=== PATIENT | female | born 1945 | race Two or more races ===

== ENCOUNTER 2023-10-07 15:57 | Inpatient (IN) | payer MEDICARE, MEDICAID ==
[~2023-10-07] VITALS: Ht 149.9 cm; Wt 55.0 kg
[2023-10-07 18:09] LABS: Basophils # (auto) 0 10 ^3/uL (0-0.2); Basophils % (auto) 0.1 % (0.0-2.0); Eosinophils # (auto) 0.1 10 ^3/uL (0-0.8); Eosinophils % (auto) 2.2 % (0.0-7.0); Hematocrit 32.9 % (36.0-46.0); Lymphocytes # (auto) 0.5 10 ^3/uL (0.4-5.4); Lymphocytes % (auto) 13.7 % (10.0-50.0); Mean Corpuscular Hemoglobin 33.2 pg (28.0-32.0); Mean Corpuscular Volume 90.7 fL (80.0-100.0); Monocytes # (auto) 0.1 10 ^3/uL (0-1.3); Monocytes % (auto) 2.9 % (0.0-12.0); Neutrophils # (auto) 3.2 10 ^3/uL (1.6-8.6); Neutrophils % (auto) 81.1 % (37.0-80.0); Nucleated Red Blood Cells % 0.1 %; Red Blood Cells 3.63 10^6/uL (4.0-5.20); Red Cell Distribution Width 15.2 % (11.8-14.3)
[2023-10-07 18:31] LABS: Alanine Aminotransferase 147 U/L (7-40); Albumin 2.9 g/dL (3.2-4.8); Alkaline Phosphatase 252 U/L (46-116); Anion Gap 4 (5-15); Aspartate Aminotransferase 156 U/L (13-40); Bilirubin, Total 2.7 mg/dL (0.2-1.0); Blood Urea Nitrogen 21 mg/dL (9-23); Calcium 8.5 mg/dL (8.7-10.4); Carbon Dioxide 27 mmol/L (20-30); Chloride 94 mmol/L (98-107); Glucose 166 mg/dL (74-106); Potassium 4.2 mmol/L (3.5-5.1); Sodium 125 mmol/L (136-145)
[2023-10-07] MEDS: SODIUM CHLORIDE 0.9% 1,000 ML IV ONE ×2 (18:38→19:57)
[2023-10-07] MEDS: DexAMETHasone 4 MG TAB PO ONE (18:38)
[2023-10-07] MEDS: diphenhdrAMINE HCL 50 MG/1 ML VL IV ONE (18:38)
[2023-10-07 18:45] LABS: Mean Corpuscular Hgb Conc. 36.5 g/dL (32.0-36.0)
[2023-10-07 19:49] LABS: Platelet Estimate Decreased
[2023-10-07 23:29] LABS: Chloride 99 mmol/L (98-107); Potassium 4.4 mmol/L (3.5-5.1); Sodium 125 mmol/L (136-145)
[2023-10-07 23:30] LABS: Anion Gap 3 (5-15); Carbon Dioxide 23 mmol/L (20-30)
[2023-10-07 23:31] LABS: Calcium 7.9 mg/dL (8.7-10.4)
[2023-10-07 23:36] LABS: BUN/Creatinine Ratio 21.1 (10.0-20.0); Blood Urea Nitrogen 16 mg/dL (9-23); Glucose 226 mg/dL (74-106)
[2023-10-08] VITALS (7 sets, daily range): BP systolic 140–173; BP diastolic 57–70; PULSE 63–84; RESP 13–17; TEMP 97.8–98.5; O2SAT 96–98
[2023-10-08] MEDS: SODIUM CHLORIDE 0.9% 1,000 ML IV ONE (02:02)
[2023-10-08] MEDS: InsuLIN REG 1unit/0.01ml Soln (100units/ml) SC ONE (02:03)
[2023-10-08] MEDS ORDERED: DEXTROSE (50%) 50ML SYRG IV PRN (03:00)
[2023-10-08] MEDS ORDERED: ONDANSETRON HCL 4 MG/2 ML VIAL IV PRN (03:00)
[2023-10-08] MEDS: SODIUM CHLORIDE 0.9% 1,000 ML IV SCH (03:10)
[2023-10-08] MEDS: ACCU-CHEK COMFORT CURVE STRIP VI SCH (06:43)
[2023-10-08] MEDS: InsuLIN REG 1unit/0.01ml Soln (100units/ml) SC SCH (06:48)
[2023-10-08] MEDS: LACTULOSE 20Gm/30ML SOLN PO SCH (08:15)
[2023-10-08 08:25] LABS: Chloride 99 mmol/L (98-107); Potassium 4.2 mmol/L (3.5-5.1); Sodium 127 mmol/L (136-145)
[2023-10-08 08:26] LABS: Anion Gap 5 (5-15); Carbon Dioxide 23 mmol/L (20-30)
[2023-10-08 08:31] LABS: BUN/Creatinine Ratio 27.4 (10.0-20.0); Blood Urea Nitrogen 20 mg/dL (9-23); Glucose 216 mg/dL (74-106)
[2023-10-08 08:39] LABS: Basophils # (auto) 0 10 ^3/uL (0-0.2); Basophils % (auto) 0.2 % (0.0-2.0); Eosinophils # (auto) 0 10 ^3/uL (0-0.8); Eosinophils % (auto) 0.2 % (0.0-7.0); Hematocrit 32.7 % (36.0-46.0); Hemoglobin 11.7 g/dL (12.2-16.2); Lymphocytes # (auto) 0.6 10 ^3/uL (0.4-5.4); Lymphocytes % (auto) 20.2 % (10.0-50.0); Mean Corpuscular Hemoglobin 32.7 pg (28.0-32.0); Mean Corpuscular Hgb Conc. 35.9 g/dL (32.0-36.0); Mean Corpuscular Volume 91.2 fL (80.0-100.0); Monocytes # (auto) 0.1 10 ^3/uL (0-1.3); Neutrophils # (auto) 2.2 10 ^3/uL (1.6-8.6); Neutrophils % (auto) 77.4 % (37.0-80.0); Nucleated Red Blood Cells % 0.2 %; Red Blood Cells 3.59 10^6/uL (4.0-5.20); Red Cell Distribution Width 15.7 % (11.8-14.3); White Blood Cell 2.8 10^3/uL (4.4-10.8)
[2023-10-08 09:07] LABS: Hepatitis B Surface Antigen Negative (Negative)
[2023-10-08 09:28] LABS: Hepatitis B Core IgM Negative
[2023-10-08 09:30] LABS: Hepatitis A Ab IgM Negative
[2023-10-08 09:34] LABS: LDL Cholesterol 85 mg/dL (< 100); Triglycerides 81 mg/dL (< 150)
[2023-10-08 09:36] LABS: Cholesterol 144 mg/dL (< 200); HDL Cholesterol 34 mg/dL (40-59)
[2023-10-08] MEDS: diphenhdrAMINE HCL 25 MG CAP PO PRN (09:57)
[2023-10-08] MEDS: FAMOTIDINE (10MG/ML) 2ML VL IV SCH (09:57)
[2023-10-08] MEDS: LOSARTAN POTASSIUM 50 MG TAB PO SCH (09:59)
[2023-10-08] MEDS ORDERED: ENOXAPARIN SOD 40 MG/0.4 ML SYRINGE SC ONE (10:30)
[2023-10-08 11:51] LABS: Hepatitis C Antibody Negative (Negative)
[2023-10-08 12:33] LABS: Urine Bacteria None Seen /hpf (None Seen)
[2023-10-08 12:51] LABS: Sodium Urine 28 mmol/L (40-220)
[2023-10-08 12:58] LABS: Amphetamine Screen, Urine Neg (NEGATIVE); Barbiturate Scree,Urine Neg (NEGATIVE); Benzodiazephine Screen, Urine Neg (NEGATIVE); Cocaine Screen, Urine Neg (NEGATIVE); Opiate Scree,Urine Neg (NEGATIVE)
[2023-10-08 12:59] LABS: Cannabinoid Screen, Urine Neg (NEGATIVE); Phencyclidine Screen, Urine Neg (NEGATIVE)
[2023-10-08 13:00] LABS: Urine Blood Negative /uL (Negative); Urine Clarity Clear (Clear); Urine Color Yellow (Yellow); Urine Protein, UAD 2+ (Negative); Urine Urobilinogen Normal (Negative); Urine WBC 1 /hpf (0 - 5); Urine pH 6.5 (5.0-9.0)
[2023-10-08] MEDS: diphenhdrAMINE HCL 50 MG/1 ML VL IV ONE (13:18)
[2023-10-08] MEDS ORDERED: IOHEXOL 300 MG/ML 100ML BOTTLE IJ ONE (13:28)
[2023-10-08] MEDS: methylPREDNISolone SOD SUCC 125 MG/2 ML VL IV ONE (16:17)
[2023-10-08] MEDS ORDERED: [UNRECOGNIZED DRUG - CODE] XX (18:56)
[2023-10-08] MEDS ORDERED: [UNRECOGNIZED DRUG - CODE] PO (18:56)
[2023-10-09 01:00] VITALS: BP 148/51; PULSE 85; RESP 16; TEMP 98; O2SAT 96
[2023-10-09 05:00] VITALS: BP 126/43; PULSE 88; RESP 18; TEMP 98.1; O2SAT 94
[2023-10-09 06:17] LABS: Basophils # (auto) 0 10 ^3/uL (0-0.2); Basophils % (auto) 0.1 % (0.0-2.0); Eosinophils # (auto) 0 10 ^3/uL (0-0.8); Eosinophils % (auto) 0.1 % (0.0-7.0); Hematocrit 30.4 % (36.0-46.0); Lymphocytes # (auto) 0.5 10 ^3/uL (0.4-5.4); Lymphocytes % (auto) 13.5 % (10.0-50.0); Mean Corpuscular Hemoglobin 33.4 pg (28.0-32.0); Mean Corpuscular Hgb Conc. 36.1 g/dL (32.0-36.0); Mean Corpuscular Volume 92.3 fL (80.0-100.0); Monocytes # (auto) 0.1 10 ^3/uL (0-1.3); Monocytes % (auto) 3.4 % (0.0-12.0); Neutrophils # (auto) 2.8 10 ^3/uL (1.6-8.6); Neutrophils % (auto) 82.9 % (37.0-80.0); Red Cell Distribution Width 15.4 % (11.8-14.3); White Blood Cell 3.3 10^3/uL (4.4-10.8)
[2023-10-09 06:30] LABS: Alanine Aminotransferase 141 U/L (7-40); Albumin 2.5 g/dL (3.2-4.8); Alkaline Phosphatase 234 U/L (46-116); Anion Gap 3 (5-15); Aspartate Aminotransferase 102 U/L (13-40); Bilirubin, Total 1.8 mg/dL (0.2-1.0); Blood Urea Nitrogen 21 mg/dL (9-23); Calcium 7.9 mg/dL (8.7-10.4); Carbon Dioxide 24 mmol/L (20-30); Chloride 104 mmol/L (98-107); Glucose 237 mg/dL (74-106); Potassium 4.2 mmol/L (3.5-5.1); Sodium 131 mmol/L (136-145); Total Protein 5.2 g/dL (5.7-8.2)
[2023-10-09] MEDS: INSULIN LANTUS (GLARGINE) 1 /0.01ml (100units/ml) SC SCH (07:28)
[2023-10-09 08:00] VITALS: PULSE 84; RESP 16; O2SAT 97
[2023-10-09 08:48] VITALS: BP 154/61; PULSE 84; RESP 16; TEMP 97.3; O2SAT 97
[2023-10-09] MEDS ORDERED: ENOXAPARIN SOD 40 MG/0.4 ML SYRINGE SC SCH (10:00)
[2023-10-09 12:28] VITALS: BP 157/53; PULSE 89; RESP 17; TEMP 97.8; O2SAT 95
[2023-10-09] MEDS ORDERED: LACT10SO3 PO (14:04)
[2023-10-09 14:47] LABS: INR 1.22 (0.9-1.15); Partial Thromboplastin Time 28.6 SEC (24.5-34.5); Prothrombin Time 12.7 sec (9.3-11.8)
[2023-10-09 14:59] VITALS: BP 142/57; PULSE 84; RESP 16; TEMP 36.6; O2SAT 95
[2023-10-10 08:07] LABS: Complement C3 105 mg/dL (82-167)
[2023-10-10 11:07] LABS: CMV IgM Antibody <30.0 AU/mL (0.0-29.9); EBV Ab VCA IgG Antibody >600.0 U/mL (0.0-17.9); EBV Ab VCA IgM Antibody <36.0 U/mL (0.0-35.9)
[2023-10-10 12:07] LABS: AFP Serum Tumor Marker 5.1 ng/mL (0.0-9.2)
[2023-10-10 13:06] LABS: Anti-Nuclear Antibody Direct Positive (Negative); Anti-dsDNA Antibody 1 IU/mL (0-9); RNP Antibody <0.2 AI (0.0-0.9); Sjogren's Anti-SS-A Antibody <0.2 AI (0.0-0.9); Sjogren's Anti-SS-B Antibody <0.2 AI (0.0-0.9); Smith Antibody <0.2 AI (0.0-0.9)
[2023-10-12 14:06] LABS: Actin (Smooth Muscle) Antibody 10 Units (0-19); Mitochondrial (M2) Antibody <20.0 Units (0.0-20.0)
== END 2023-10-09 16:00 | disposition home or self-care (01) | DRG 436 ==
LOC: ER 15:57 → OVERFLOW 10-08 02:53 → EAST 10-08 04:50
PROVIDERS: ADMIT Internal Medicine; ATTEND Internal Medicine
DX: C22.9 Malignant neoplasm of liver, not specified as primary or secondary (principal); D61.818 Other pancytopenia; E87.1 Hypo-osmolality and hyponatremia; I50.32 Chronic diastolic (congestive) heart failure; R74.01 Elevation of levels of liver transaminase levels; E80.6 Other disorders of bilirubin metabolism; E11.9 Type 2 diabetes mellitus without complications; T50.995A Adverse effect of other drugs, medicaments and biological substances, initial encounter; E03.9 Hypothyroidism, unspecified; K74.60 Unspecified cirrhosis of liver; K80.20 Calculus of gallbladder without cholecystitis without obstruction; I11.0 Hypertensive heart disease with heart failure; Z79.899 Other long term (current) drug therapy; Y92.89 Other specified places as the place of occurrence of the external cause; L93.0 Discoid lupus erythematosus
CPT/HCPCS: 36415; 71045; 74177; 76705; 80048; 80053; 80061; 80074; 80307; 81001; 82105; 82140; 82728; 82962; 83036; 83930; 83935; 84295; 84300; 85025; 85610; 85730; 86038; 86160; 86644; 86645; 86664; 86703; 93970; 96374; G0378; J1815; J3490